=== PATIENT | male | born 1990 | race Caucasian/White ===

== ENCOUNTER 2020-04-10 09:55 | Emergency (ER) | payer BC ==
--- NOTE | 2020-04-10 10:53 | RAD REPORT ---
EXAM DESCRIPTION: CT - Stone Protocol - 04/10/2020 10:38 am CLINICAL HISTORY: ABD PAIN, right mid abdomen COMPARISON: No comparisons TECHNIQUE: Axial 5 mm thick images were obtained without oral or IV contrast. The [id number] span s the entirety of the system including uppermost abdomen and lung bases. All CT scans are performed using dose optimization technique as appropriate and may include automated exposure control or mA/KV adjustment according to patient size. FINDINGS: No hydronephrosis is present and no obstructing ureteral calculi. No suspicious renal mass es. Isodense masses and pyelonephritis are not excluded on a stone protocol CT scan. No significant a drenal finding. No urinary bladder suspicious finding. Liver shows a mild diffuse fatty infiltration pattern. No focal lesions seen on noncontrast imaging. No pancreatitis findings or pancreatic mass evident on a noncontrast study. No splenic abnormality se en. Gallbladder is only partially filled. No biliary tree dilatation. Stones can be occult on CT imag ing. No suspicious bowel findings. No appendicitis findings. No active bowel process seen. No hernia, mass or bulky lymphadenopathy noted. No free air, free fluid or inflammatory stranding. No significant bony abnormality. IMPRESSION: Negative CT stone protocol study for acute finding. Isodense masses and pyelonephritis are not excluded on stone protocol technique.Overall exam sensitiv ity is decreased in the absence of contrast. Mild diffuse fatty infiltration of the liver.
[2020-04-10 12:08] LABS: Urine Blood NEGATIVE (NEG); Urine Glucose NEGATIVE (NEG); Urine Protein NEGATIVE (NEG)
--- NOTE | 2020-04-10 12:35 | RAD REPORT ---
EXAM DESCRIPTION: US - Abdomen Exam Limited - 04/10/2020 12:05 pm CLINICAL HISTORY: ABD PAIN COMPARISON: Stone Protocol dated 04/10/2020 FINDINGS: No gallstones, sludge or other abnormalities within the gallbladder lumen. There is no wal l thickening or pericholecystic fluid. No common duct stone or biliary tree dilatation identified. Patient detailed pain rated 5/10 over the right upper quadrant. Sonographic Goodwin sign maneuvers did not generate a change in pain pattern. IMPRESSION: Normal gallbladder and biliary tree ultrasound.
--- OUTSIDE RECORDS SUMMARY | 2020-04-10 12:46 | XMS REPORT | Clinical Summary ---
:1990 Author Organization [facility] Address [address] [place] [address] Care Team Providers Name Role Phone Monica Primary Care Provider Allergies Active Allergy Reactions Severity Noted Date Comments Penicillins Other (See Comments) 08/05/2017 Mauk di zzy and "out of it" Medications Medication Sig Dispensed Refills Start Date End Date Status gabapentin Take 1 capsule 90 capsule 0 08/11/2017 Ac tive (NEURONTIN) 100 MG (100 mg total) by capsule mouth 3 (three) times daily. Active Problems Problem Noted Date Spontaneous pneumothorax 08/05/2017 Social History Tobacco Use Types Packs/Day Years Used Date Current Every Day Smoker 1 Smokeless Tobacco: Current User Snuff Alcohol Use Drinks/Week oz/Week Comments Yes 14 Cans of beer 8.4 Sex Assigned at Date Recorded Not on file Job Start Date Occupation Industry Not on file Not on file Not on file Travel History Travel Start Travel End No recent travel history available. Last Filed Vital Signs Not on file Plan of Treatment Not on file Results Not on fileafter 04/10/2019 Insurance Payer Benefit Plan / Subscriber ID Type Phone Address Group [employer] xxxxxxxxxxxx PPO [phone] [id number] SHIELD [place]/PP[place] [address] Advance Directives For more information, please contact:[id number] [place], [place] [phone] Code Status Date Activated Date Inactivated Comments Full Code 08/05/2017 5:42 PM 08/11/2017 5:02 PM This code status was determined by: Patient
--- OUTSIDE RECORDS SUMMARY | 2020-04-10 12:47 | XMS REPORT | Continuity of Care Document ---
:1990 Author Organization [facility] t Address [address] [place] [address] Care Team Providers Name Role Phone Sharpless Primary Care Physician BRAN BARRAZA Attending Clinician Unavailable BRAN BARRAZA Admitting Clinician Unavailable Problems Condition Condition Condition Status Onset Resolution Last Treating Co mments Source Name Details Category Date Date Treatment Clinician Date Spontaneou Spontaneou Disease Active 2016-[address] [facility] s -15 [facility] - pneumothor pneumothor 00:00: Me dical ax ax 00 Center Allergies, Adverse Reactions, Alerts Allergy Allergy Status Severity Reaction(s) Onset Inactive Treating Comm ents Source Name Type Date Date Clinician Penicill Propensi Active Other (See 2016-[address] [place] [facility] [address] ins ty to Comments) 15 dizzy and Luke [facility] - adverse 00:00: "out of Medical reaction 00 it" Center s Social History Social Habit Start Date Stop Date Quantity Comments Source History of tobacco Snuff User [facility] - use [facility] Sex Assigned At [facility] Cigarettes smoked 2017-08-10 2017-08-10 [facility] - current (pack per 00:00:00 00:00:00 Medical Center day) - Reported Smoking Status Start Date Stop Date Source Current every day smoker 2017-08-10 00:00:00 [facility] Medications Ordered Filled Start Stop Current Ordering Indication Dosage Frequency Signature Comments Components Source Medication Medication Date Date Medication? Clinician (SIG) Name Name gabapentin 2016-09 Yes 100mg [id number] Take [address] [facility] (NEURONTIN) 10-11 [id number] capsule [facility] - 100 MG 00:00: 3D (100 mg Medical capsule 00 total) by Center mouth 3 (three) times daily. Procedures This patient has no known procedures. Results Test Description Test Time Test Comments Results Result [facility] e Comments CT, CHEST, 2017-10-22 FINAL REPORT PATIENT WITHOUT CONTRAST 6 ID: [id number] CT, 22:51:00 CHEST, WITHOUT CONTRAST INDICATION: spontaneous pneumothorax, chest tube in place COMPARISON: Correlation to plain films series of the same date. TECHNIQUE: Noncontrast axially oriented images were obtained from the thoracic inlet through the lung bases. Coronal and sagittal reformats were provided. DOSE REDUCTION: Dose modulation, iterative reconstruction, and/or weight-based adjustment of the mA/kV was utilized to reduce the radiation dose to as low as reasonably achievable. FINDINGS: Lungs and Pleura: Moderate right pneumothorax. A small caliber thoracic drainage catheter terminates anteriorly near the midline. Atelectatic changes are present at the right base. The left lung is clear. No pleural effusion noted.Central airways: Patent.Mediastinum: No adenopathy or worrisome shift.Heart and pericardium: Normal.Great vessels: Normal calibers. Included upper abdomen: No acute abnormalities.Regional skeletal structures: Intact. Additional findings: None. IMPRESSION: Moderate right pneumothorax with small caliber thoracic drainage catheter terminating anteriorly. Signed: JR Mohan Robert MDReport Verified Date/Time: 11/06/2017 22:51:06 Reading Location: [address] Reading Room UE EXAM 2017-07-23 Surgical Pathology 9 Report 12:06:00 Case: [id number] Authorizing Provider: Pascual Barraza MD Collected: 08/08/2017 1026 Ordering Location: [address] Received: 08/10/2017 0807 Service Pathologist: Paulette Leal MD Specimen: Lung, Right Upper Lobe, Right Upper Lobe Wedge This addendum is issued to report the results of immunohistochemical studies done to characterize a proliferation on mesothelial surface on section A1: - The proliferation is positive for mesothelial marker calretinin and histiocytic marker CD68. No malignancy is seenCPT CODE: [id number]; [id number] electronically signed by Paulette Leal MD on 08/19/2017 at 12:06 PMLUNG, RIGHT UPPER LOBE, WEDGE RESECTION: - WEIGHT: 11GM - PLEURAL AND SUBPLEURAL BLEBS, FIBROSIS AND REACTIVE VASCULAR PROLIFERATION - EMPHYSEMATOUS CHANGES IN SUBPLEURAL LUNG PARENCHYMA - NO GRANULOMAS, DYSPLASIA OR MALIGNANCY Signing Pathologist Direct Phone Line: [phone] lly signed by Paulette Leal MD on 08/18/2017 at 1:40 PMSections show pleural and subpleural blebs, scar and granulation tissue. There is focal mesothelial and histiocytic proliferation. Focal subpleural emphysematous changes are seen. Focally, lung parenchyma appears collapsed. No granulomas, dysplasia or malignancy seen.[id number] pneumothoraxRight upper lobe wedge resectionThe specimen is received in a formalin-filled container and labeled with the patient's information and labeled "right upper lobe wedge resection and consists of an inflated wedge resection of lung weighing 11 gm measuring 5 x 3 x 1 cm. The staple line is inked blue. The pleura is blue-purple with a bleb centrally, measuring 2.5 x 1.5 x 1 cm. The remainder of the lung parenchyma is red-brown, spongy with no other abnormalities present. Bleb is located 0.6 cm from the staple line. Supply Crib Attendant sections are submitted A1 to A3. CG/pl RAD, CHEST, 1 2017-07-23 Reason for FINAL REPORT PATIENT VIEW, NON DEPT 1 exam:->s/p ct ID: [id number] Chest 12:32:00 removalShould this one view AP 08/11/2017 be performed at 12:31 PM CLINICAL the bedside?->Yes INDICATION: s/p ct removal COMPARISON: 08/11/2017 at 0751 IMPRESSION: A small volume right pneumothorax is unchanged as post thoracostomy tube removal. There is a trace right pleural effusion. The left lung is well aerated. Cardiomediastinal contours are stable. The central pulmonary vasculature is not engorged. Signed: Liban Yañez Verified Date/Time: 08/11/2017 12:32:17 Reading Location: [facility] [id number] Consult Reading Room , CHEST, 1 2017-07-23 Reason for FINAL REPORT PATIENT VIEW, NON DEPT 1 exam:->sp VATS ID: [id number] Chest 08:00:00 with chest one view AP 08/11/2017 tubesShould this 8:00 AM CLINICAL be performed at INDICATION: sp VATS the bedside?->Yes with chest tubes COMPARISON: 08/10/2017 IMPRESSION: There is an unchanged small volume right apical pneumothorax, with unchanged positioning of a right thoracostomy tube. The lungs are otherwise well aerated. Cardiomediastinal contours are stable. The central pulmonary vasculature is not engorged. Signed: Liban Yañez MDReport Verified Date/Time: 08/11/2017 08:00:34 Reading Location: [facility] Radiology Reading Room ESIUM 2017-08-11 05:34:00 Test Item Value Reference Range Interpretation Comme nts MAGNESIUM (BEAKER) (test code = 627) 1.7 mg/dL 1.6-2.6 BASIC METABOLIC [id number] 05:34:00 Test Item Value Reference Range Interpretation Comments SODIUM (BEAKER) 138 meq/L 136-145 (test code = 381) POTASSIUM (BEAKER) 4.2 meq/L 3.5-5.1 (test code = 379) CHLORIDE (BEAKER) 104 meq/L 98-107 (test code = 382) CO2 (BEAKER) (test 27 meq/L 22-29 code = 355) BLOOD UREA NITROGEN 12 mg/dL 7-21 (BEAKER) (test code = 354) CREATININE (BEAKER) 0.85 mg/dL 0.57-1.25 (test code = 358) GLUCOSE RANDOM 103 mg/dL 70-105 (BEAKER) (test code = 652) CALCIUM (BEAKER) 9.1 mg/dL 8.4-10.2 (test code = 697) EGFR (BEAKER) (test 107 mL/min/1.73 ESTIM ATED GFR IS code = 1092) sq m NOT ACCURATE CREATININE CLEARANCE IN PREDICTING GLOMERULAR FILTRATION RATE . ESTIMATED GFR I S NOT APPLICABLE FOR DIALYSIS PATIEN TS. CBC W/PLT COUNT & AUTO [id number] 05:01:00 Test Item Value Reference Range Interpretation Comments WHITE BLOOD CELL COUNT (BEAKER) 5.7 K/ L 3.5-10.5 (test code = 775) RED BLOOD CELL COUNT (BEAKER) 3.90 M/ L 4.63-6.08 L (test code = 761) HEMOGLOBIN (BEAKER) (test code = 11.8 GM/DL 13.7-17.5 L 410) HEMATOCRIT (BEAKER) (test code = 36.8 % 40.1-51.0 L 411) MEAN CORPUSCULAR VOLUME (BEAKER) 94.4 fL 79.0-92.2 H (test code = 753) MEAN CORPUSCULAR HEMOGLOBIN 30.3 pg 25.7-32.2 (BEAKER) (test code = 751) MEAN CORPUSCULAR HEMOGLOBIN CONC 32.1 GM/DL 32.3-36.5 L (BEAKER) (test code = 752) RED CELL DISTRIBUTION WIDTH 12.5 % 11.6-14.4 (BEAKER) (test code = 412) PLATELET COUNT (BEAKER) (test 209 K/CU MM 150-450 code = 756) MEAN PLATELET VOLUME (BEAKER) 10.6 fL 9.4-12.4 (test code = 754) NUCLEATED RED BLOOD CELLS 0 /100 WBC 0-0 (BEAKER) (test code = 413) NEUTROPHILS RELATIVE PERCENT 63 % (BEAKER) (test code = 429) LYMPHOCYTES RELATIVE PERCENT 20 % (BEAKER) (test code = 430) MONOCYTES RELATIVE PERCENT 12 % (BEAKER) (test code = 431) EOSINOPHILS RELATIVE PERCENT 4 % (BEAKER) (test code = 432) BASOPHILS RELATIVE PERCENT 1 % (BEAKER) (test code = 437) NEUTROPHILS ABSOLUTE COUNT 3.62 K/ L 1.78-5.38 (BEAKER) (test code = 670) LYMPHOCYTES ABSOLUTE COUNT 1.15 K/ L 1.32-3.57 L (BEAKER) (test code = 414) MONOCYTES ABSOLUTE COUNT (BEAKER) 0.68 K/ L 0.30-0.82 (test code = 415) EOSINOPHILS ABSOLUTE COUNT 0.24 K/ L 0.04-0.54 (BEAKER) (test code = 416) BASOPHILS ABSOLUTE COUNT (BEAKER) 0.03 K/ L 0.01-0.08 (test code = 417) IMMATURE GRANULOCYTES-RELATIVE 0 % 0-1 PERCENT (BEAKER) (test code = 2801) RAD, CHEST, 1 VIEW, NON [id number] 17:24:00Reason for exam:->s/p CT removalShould this be performed at the bedside?->YesFINAL REPORT Comparison: 08/10/2017 at 2:33 PM TECHNIQUE: Single view of the chest. FINDINGS: One of the right-sided chest tubes has been removed. There is a tiny right apical pneumothorax. No other significant change. Signed: Neslon Wetzel Verified Date/Time: 08/10/201717:24:27 Reading Location: [facility] Radiology Reading Room RAD, CHEST, 1 VIEW, NON [id number] 14:37:00Reason for exam:->CT to water sealShould this be performed at the bedside?->YesFINAL REPORT Chest one view AP 08/10/2017 2:37 PM CLINICAL INDICATION: CT to water seal COMPARISON: 08/10/2017 IMPRESSION: There is a small volume right pneumothorax, new when compared to the prior examination. There is atelectasis in the right lung base. The left lung is clear.Cardiomediastinal contours are within normal limits. The central pulmonary vasculature is not engorged. Signed: Liban Yañez Verified Date/Time: 08/10/2017 14:37:50 Reading Location: [address] Consult Reading Room RAD, CHEST, 1 VIEW, NON [id number] 08:41:00Reason for exam:->sp VATS with chest tubesShould this be performed at the bedside?->YesFINAL REPORT Chest two views AP 08/10/2017 8:41 AM CLINICAL INDICATION: sp VATS with chest tubes COMPARISON: 08/09/2017 IMPRESSION: Support hardware is unchanged in position. Thelungs are well aerated. Cardiomediastinal contours are within normal limits. The central pulmonary vasculature is not engorged. Signed: Liban Yañez Verified Date/Time: 08/10/2017 08:41:41Reading Location: [facility] Radiology Reading Room [id number] 06:26:00 Test Item Value Reference Range Interpretation Comments MAGNESIUM (BEAKER) (test code = 1.8 mg/dL 1.6-2.6 627) BASIC METABOLIC [id number] 06:26:00 Test Item Value Reference Range Interpretation Comments SODIUM (BEAKER) 139 meq/L 136-145 (test code = 381) POTASSIUM (BEAKER) 4.3 meq/L 3.5-5.1 (test code = 379) CHLORIDE (BEAKER) 104 meq/L 98-107 (test code = 382) CO2 (BEAKER) (test 28 meq/L 22-29 code = 355) BLOOD UREA NITROGEN 9 mg/dL 7-21 (BEAKER) (test code = 354) CREATININE (BEAKER) 0.84 mg/dL 0.57-1.25 (test code = 358) GLUCOSE RANDOM 96 mg/dL 70-105 (BEAKER) (test code = 652) CALCIUM (BEAKER) 9.2 mg/dL 8.4-10.2 (test code = 697) EGFR (BEAKER) (test 108 mL/min/1.73 ESTIM ATED GFR IS code = 1092) sq m NOT ACCURATE CREATININE CLEARANCE IN PREDICTING GLOMERULAR FILTRATION RATE . ESTIMATED GFR I S NOT APPLICABLE FOR DIALYSIS PATIEN TS. CBC W/PLT COUNT & AUTO [id number] 05:56:00 Test Item Value Reference Range Interpretation Comments WHITE BLOOD CELL COUNT (BEAKER) 5.9 K/ L 3.5-10.5 (test code = 775) RED BLOOD CELL COUNT (BEAKER) 3.97 M/ L 4.63-6.08 L (test code = 761) HEMOGLOBIN (BEAKER) (test code = 12.2 GM/DL 13.7-17.5 L 410) HEMATOCRIT (BEAKER) (test code = 37.7 % 40.1-51.0 L 411) MEAN CORPUSCULAR VOLUME (BEAKER) 95.0 fL 79.0-92.2 H (test code = 753) MEAN CORPUSCULAR HEMOGLOBIN 30.7 pg 25.7-32.2 (BEAKER) (test code = 751) MEAN CORPUSCULAR HEMOGLOBIN CONC 32.4 GM/DL 32.3-36.5 (BEAKER) (test code = 752) RED CELL DISTRIBUTION WIDTH 12.5 % 11.6-14.4 (BEAKER) (test code = 412) PLATELET COUNT (BEAKER) (test 211 K/CU MM 150-450 code = 756) MEAN PLATELET VOLUME (BEAKER) 10.7 fL 9.4-12.4 (test code = 754) NUCLEATED RED BLOOD CELLS 0 /100 WBC 0-0 (BEAKER) (test code = 413) NEUTROPHILS RELATIVE PERCENT 62 % (BEAKER) (test code = 429) LYMPHOCYTES RELATIVE PERCENT 22 % (BEAKER) (test code = 430) MONOCYTES RELATIVE PERCENT 12 % (BEAKER) (test code = 431) EOSINOPHILS RELATIVE PERCENT 4 % (BEAKER) (test code = 432) BASOPHILS RELATIVE PERCENT 1 % (BEAKER) (test code = 437) NEUTROPHILS ABSOLUTE COUNT 3.65 K/ L 1.78-5.38 (BEAKER) (test code = 670) LYMPHOCYTES ABSOLUTE COUNT 1.27 K/ L 1.32-3.57 L (BEAKER) (test code = 414) MONOCYTES ABSOLUTE COUNT (BEAKER) 0.68 K/ L 0.30-0.82 (test code = 415) EOSINOPHILS ABSOLUTE COUNT 0.26 K/ L 0.04-0.54 (BEAKER) (test code = 416) BASOPHILS ABSOLUTE COUNT (BEAKER) 0.05 K/ L 0.01-0.08 (test code = 417) IMMATURE GRANULOCYTES-RELATIVE 0 % 0-1 PERCENT (BEAKER) (test code = 2801) RAD, CHEST, 1 VIEW, NON [id number] 08:32:00Reason for exam:->chest tubes inShould this be performed at the bedside?->YesFINAL REPORT Chest, 1 view Clinical history: chest tubes in Comparison: 08/08/2017 Discussion: Two right-sided chest tubes in position without pneumothorax visualized. The left lung is clear. The cardiac silhouette appears stable. The osseous structures are intact. Signed: Brice Mccartney MDReport Verified Date/Time: 08/09/2017 08:32:00 Reading Location: [facility] [id number] Ortho ConsultReading Room MAGNESIUM 2017-08-09 06:05:00 Test Item Value Reference Range Interpretation Comments MAGNESIUM (BEAKER) (test code = 1.6 mg/dL 1.6-2.6 627) BASIC METABOLIC [id number] 06:05:00 Test Item Value Reference Range Interpretation Comments SODIUM (BEAKER) 136 meq/L 136-145 (test code = 381) POTASSIUM (BEAKER) 3.9 meq/L 3.5-5.1 (test code = 379) CHLORIDE (BEAKER) 104 meq/L 98-107 (test code = 382) CO2 (BEAKER) (test 24 meq/L 22-29 code = 355) BLOOD UREA NITROGEN 11 mg/dL 7-21 (BEAKER) (test code = 354) CREATININE (BEAKER) 0.84 mg/dL 0.57-1.25 (test code = 358) GLUCOSE RANDOM 90 mg/dL 70-105 (BEAKER) (test code = 652) CALCIUM (BEAKER) 8.7 mg/dL 8.4-10.2 (test code = 697) EGFR (BEAKER) (test 108 mL/min/1.73 ESTIM ATED GFR IS code = 1092) sq m NOT ACCURATE CREATININE CLEARANCE IN PREDICTING GLOMERULAR FILTRATION RATE . ESTIMATED GFR I S NOT APPLICABLE FOR DIALYSIS PATIEN TS. [id number] 05:26:00 Test Item Value Reference Range Interpretation Comments PROTIME (BEAKER) (test code = 14.7 seconds 11.7-14.7 759) INR (BEAKER) (test code = 370) 1.2 <=5.9 PARTIAL THROMBOPLASTIN TIME 35.3 seconds 22.5-36.0 (BEAKER) (test code = 760) RECOMMENDED COUMADIN/WARFARIN INR THERAPY RANGESSTANDARD DOSE: 2.0 - 3.0 Includes: PROPHYLAXIS forvenous thrombosis, systemic embolization; TREATMENT for venous thrombosis and/or pulmonary embolus.HIGH RISK: Target INR is 2.5-3.5 for patients with mechanical heart valves.CBC W/PLT COUNT & AUTO DIFFERENTIAL 2017-08-09 05:10:00 Test Item Value Reference Range Interpretation Comments WHITE BLOOD CELL COUNT (BEAKER) 9.2 K/ L 3.5-10.5 (test code = 775) RED BLOOD CELL COUNT (BEAKER) 3.98 M/ L 4.63-6.08 L (test code = 761) HEMOGLOBIN (BEAKER) (test code = 12.3 GM/DL 13.7-17.5 L 410) HEMATOCRIT (BEAKER) (test code = 36.9 % 40.1-51.0 L 411) MEAN CORPUSCULAR VOLUME (BEAKER) 92.7 fL 79.0-92.2 H (test code = 753) MEAN CORPUSCULAR HEMOGLOBIN 30.9 pg 25.7-32.2 (BEAKER) (test code = 751) MEAN CORPUSCULAR HEMOGLOBIN CONC 33.3 GM/DL 32.3-36.5 (BEAKER) (test code = 752) RED CELL DISTRIBUTION WIDTH 12.1 % 11.6-14.4 (BEAKER) (test code = 412) PLATELET COUNT (BEAKER) (test 200 K/CU MM 150-450 code = 756) MEAN PLATELET VOLUME (BEAKER) 10.9 fL 9.4-12.4 (test code = 754) NUCLEATED RED BLOOD CELLS 0 /100 WBC 0-0 (BEAKER) (test code = 413) NEUTROPHILS RELATIVE PERCENT 79 % (BEAKER) (test code = 429) LYMPHOCYTES RELATIVE PERCENT 10 % (BEAKER) (test code = 430) MONOCYTES RELATIVE PERCENT 9 % (BEAKER) (test code = 431) EOSINOPHILS RELATIVE PERCENT 2 % (BEAKER) (test code = 432) BASOPHILS RELATIVE PERCENT 0 % (BEAKER) (test code = 437) NEUTROPHILS ABSOLUTE COUNT 7.28 K/ L 1.78-5.38 H (BEAKER) (test code = 670) LYMPHOCYTES ABSOLUTE COUNT 0.91 K/ L 1.32-3.57 L (BEAKER) (test code = 414) MONOCYTES ABSOLUTE COUNT (BEAKER) 0.82 K/ L 0.30-0.82 (test code = 415) EOSINOPHILS ABSOLUTE COUNT 0.15 K/ L 0.04-0.54 (BEAKER) (test code = 416) BASOPHILS ABSOLUTE COUNT (BEAKER) 0.04 K/ L 0.01-0.08 (test code = 417) IMMATURE GRANULOCYTES-RELATIVE 0 % 0-1 PERCENT (BEAKER) (test code = 2801) [id number] 11:39:00 Test Item Value Reference Range Interpretation Comments MAGNESIUM (BEAKER) (test code = 1.7 mg/dL 1.6-2.6 627) BASIC METABOLIC [id number] 11:39:00 Test Item Value Reference Range Interpretation Comments SODIUM (BEAKER) 138 meq/L 136-145 (test code = 381) POTASSIUM (BEAKER) 3.9 meq/L 3.5-5.1 (test code = 379) CHLORIDE (BEAKER) 104 meq/L 98-107 (test code = 382) CO2 (BEAKER) (test 27 meq/L 22-29 code = 355) BLOOD UREA NITROGEN 12 mg/dL 7-21 (BEAKER) (test code = 354) CREATININE (BEAKER) 1.04 mg/dL 0.57-1.25 (test code = 358) GLUCOSE RANDOM 107 mg/dL 70-105 H (BEAKER) (test code = 652) CALCIUM (BEAKER) 8.6 mg/dL 8.4-10.2 (test code = 697) EGFR (BEAKER) (test 84 mL/min/1.73 ESTIMA KENNEY GFR IS code = 1092) sq m NOT ACCURATE CREATININE CLEARANCE IN PREDICTING GLOMERULAR FILTRATION RATE . ESTIMATED GFR I S NOT APPLICABLE FOR DIALYSIS PATIEN TS. RAD, CHEST, 1 VIEW, NON [id number] 11:27:00Reason for exam:->s/p vatsShould this be performed at the bedside?->YesFINAL REPORT Comparison: 08/08/2017 TECHNIQUE: Single view of the chest FINDINGS: Presumably status post recent right-sided thoracic intervention. A previous small bore right-sided chest tube has been removed and 2 larger bore chest tubes have been placed. No gross pneumothorax.Right-sided subcutaneous emphysema noted. Left lung is grossly clear. Signed: Nelson Wetzel MDReport Verified Date/Time: 08/08/2017 11:27:03 Reading Location: [address] Transitional Reading Room (HEMOGRAM ONLY)2017-08-08 11:15:00 Test Item Value Reference Range Interpretation Comments WHITE BLOOD CELL COUNT (BEAKER) 10.2 K/ L 3.5-10.5 (test code = 775) RED BLOOD CELL COUNT (BEAKER) 4.26 M/ L 4.63-6.08 L (test code = 761) HEMOGLOBIN (BEAKER) (test code = 13.2 GM/DL 13.7-17.5 L 410) HEMATOCRIT (BEAKER) (test code = 39.9 % 40.1-51.0 L 411) MEAN CORPUSCULAR VOLUME (BEAKER) 93.7 fL 79.0-92.2 H (test code = 753) MEAN CORPUSCULAR HEMOGLOBIN 31.0 pg 25.7-32.2 (BEAKER) (test code = 751) MEAN CORPUSCULAR HEMOGLOBIN CONC 33.1 GM/DL 32.3-36.5 (BEAKER) (test code = 752) RED CELL DISTRIBUTION WIDTH 12.1 % 11.6-14.4 (BEAKER) (test code = 412) PLATELET COUNT (BEAKER) (test 206 K/CU MM 150-450 code = 756) MEAN PLATELET VOLUME (BEAKER) 10.5 fL 9.4-12.4 (test code = 754) NUCLEATED RED BLOOD CELLS 0 /100 WBC 0-0 (BEAKER) (test code = 413) RAD, CHEST, 1 VIEW, NON [id number] 09:21:00Reason for exam:->spontaneous pneumothoraxShould this be performed at the bedside?->YesFINAL REPORT Comparison: 08/07/2017 TECHNIQUE: Single view of the chest FINDIN GS: Previous right-sided pneumothorax has resolved. There is improved aeration in the right lower lung. Lungs are grossly clear. Small bore right-sided chest tube is stable. Signed: Nelson Wetzel MDReport Verified Date/Time: 08/08/2017 09:21:58 Reading Location: [address] Reading Room MAGNESIUM 2017-08-08 07:36:00 Test Item Value Reference Range Interpretation Comments MAGNESIUM (BEAKER) (test code = 1.7 mg/dL 1.6-2.6 627) BASIC METABOLIC [id number] 07:36:00 Test Item Value Reference Range Interpretation Comments SODIUM (BEAKER) 138 meq/L 136-145 (test code = 381) POTASSIUM (BEAKER) 4.0 meq/L 3.5-5.1 (test code = 379) CHLORIDE (BEAKER) 103 meq/L 98-107 (test code = 382) CO2 (BEAKER) (test 28 meq/L 22-29 code = 355) BLOOD UREA NITROGEN 13 mg/dL 7-21 (BEAKER) (test code = 354) CREATININE (BEAKER) 1.01 mg/dL 0.57-1.25 (test code = 358) GLUCOSE RANDOM 85 mg/dL 70-105 (BEAKER) (test code = 652) CALCIUM (BEAKER) 9.0 mg/dL 8.4-10.2 (test code = 697) EGFR (BEAKER) (test 87 mL/min/1.73 ESTIMA KENNEY GFR IS code = 1092) sq m NOT ACCURATE CREATININE CLEARANCE IN PREDICTING GLOMERULAR FILTRATION RATE . ESTIMATED GFR I S NOT APPLICABLE FOR DIALYSIS PATIEN TS. CBC W/PLT COUNT & AUTO [id number] 07:05:00 Test Item Value Reference Range Interpretation Comments WHITE BLOOD CELL COUNT (BEAKER) 7.3 K/ L 3.5-10.5 (test code = 775) RED BLOOD CELL COUNT (BEAKER) 4.35 M/ L 4.63-6.08 L (test code = 761) HEMOGLOBIN (BEAKER) (test code = 13.3 GM/DL 13.7-17.5 L 410) HEMATOCRIT (BEAKER) (test code = 40.3 % 40.1-51.0 411) MEAN CORPUSCULAR VOLUME (BEAKER) 92.6 fL 79.0-92.2 H (test code = 753) MEAN CORPUSCULAR HEMOGLOBIN 30.6 pg 25.7-32.2 (BEAKER) (test code = 751) MEAN CORPUSCULAR HEMOGLOBIN CONC 33.0 GM/DL 32.3-36.5 (BEAKER) (test code = 752) RED CELL DISTRIBUTION WIDTH 12.0 % 11.6-14.4 (BEAKER) (test code = 412) PLATELET COUNT (BEAKER) (test 215 K/CU MM 150-450 code = 756) MEAN PLATELET VOLUME (BEAKER) 10.5 fL 9.4-12.4 (test code = 754) NUCLEATED RED BLOOD CELLS 0 /100 WBC 0-0 (BEAKER) (test code = 413) NEUTROPHILS RELATIVE PERCENT 71 % (BEAKER) (test code = 429) LYMPHOCYTES RELATIVE PERCENT 17 % (BEAKER) (test code = 430) MONOCYTES RELATIVE PERCENT 8 % (BEAKER) (test code = 431) EOSINOPHILS RELATIVE PERCENT 3 % (BEAKER) (test code = 432) BASOPHILS RELATIVE PERCENT 1 % (BEAKER) (test code = 437) NEUTROPHILS ABSOLUTE COUNT 5.17 K/ L 1.78-5.38 (BEAKER) (test code = 670) LYMPHOCYTES ABSOLUTE COUNT 1.24 K/ L 1.32-3.57 L (BEAKER) (test code = 414) MONOCYTES ABSOLUTE COUNT (BEAKER) 0.58 K/ L 0.30-0.82 (test code = 415) EOSINOPHILS ABSOLUTE COUNT 0.21 K/ L 0.04-0.54 (BEAKER) (test code = 416) BASOPHILS ABSOLUTE COUNT (BEAKER) 0.05 K/ L 0.01-0.08 (test code = 417) IMMATURE GRANULOCYTES-RELATIVE 0 % 0-1 PERCENT (BEAKER) (test code = 2801) [id number] 06:59:00 Test Item Value Reference Range Interpretation Comments PROTIME (BEAKER) (test code = 13.1 seconds 11.7-14.7 759) INR (BEAKER) (test code = 370) 1.0 <=5.9 PARTIAL THROMBOPLASTIN TIME 30.9 seconds 22.5-36.0 (BEAKER) (test code = 760) RECOMMENDED COUMADIN/WARFARIN INR THERAPY RANGESSTANDARD DOSE: 2.0 - 3.0 Includes: PROPHYLAXIS forvenous thrombosis, systemic embolization; TREATMENT for venous thrombosis and/or pulmonary embolus.HIGH RISK: Target INR is 2.5-3.5 for patients with mechanical heart valves.RAD, CHEST, 1 VIEW, NON [id number] 08:02:00Reason for exam:->spontaneous pneumothoraxShould this be performed at the bedside?->YesFINAL REPORT Chest one view. Clinical history: spontaneous pneumothorax Comparison: 08/06/2017 Discussion: A frontal chest is provided. Cardiomediastinal contours are unchanged. Right chest tube is in stable position. Small right apical pneumothorax has decreased in size. Mild right basilar atelectasis. Left lung is clear. No significant effusion. Signed: Tamanna Washington Verified Date/Time: 08/07/2017 08:02:55 Reading Location: [facility] Radiology Reading Room [id number] 06:38:00 Test Item Value Reference Range Interpretation Comments MAGNESIUM (BEAKER) (test code = 2.0 mg/dL 1.6-2.6 627) BASIC METABOLIC [id number] 06:38:00 Test Item Value Reference Range Interpretation Comments SODIUM (BEAKER) 138 meq/L 136-145 (test code = 381) POTASSIUM (BEAKER) 4.2 meq/L 3.5-5.1 (test code = 379) CHLORIDE (BEAKER) 105 meq/L 98-107 (test code = 382) CO2 (BEAKER) (test 25 meq/L 22-29 code = 355) BLOOD UREA NITROGEN 13 mg/dL 7-21 (BEAKER) (test code = 354) CREATININE (BEAKER) 1.00 mg/dL 0.57-1.25 (test code = 358) GLUCOSE RANDOM 77 mg/dL 70-105 (BEAKER) (test code = 652) CALCIUM (BEAKER) 9.0 mg/dL 8.4-10.2 (test code = 697) EGFR (BEAKER) (test 88 mL/min/1.73 ESTIMA KENNEY GFR IS code = 1092) sq m NOT ACCURATE CREATININE CLEARANCE IN PREDICTING GLOMERULAR FILTRATION RATE . ESTIMATED GFR I S NOT APPLICABLE FOR DIALYSIS PATIEN TS. CBC W/PLT COUNT & AUTO [id number] 06:21:00 Test Item Value Reference Range Interpretation Comments WHITE BLOOD CELL COUNT (BEAKER) 6.3 K/ L 3.5-10.5 (test code = 775) RED BLOOD CELL COUNT (BEAKER) 4.47 M/ L 4.63-6.08 L (test code = 761) HEMOGLOBIN (BEAKER) (test code = 13.7 GM/DL 13.7-17.5 410) HEMATOCRIT (BEAKER) (test code = 41.8 % 40.1-51.0 411) MEAN CORPUSCULAR VOLUME (BEAKER) 93.5 fL 79.0-92.2 H (test code = 753) MEAN CORPUSCULAR HEMOGLOBIN 30.6 pg 25.7-32.2 (BEAKER) (test code = 751) MEAN CORPUSCULAR HEMOGLOBIN CONC 32.8 GM/DL 32.3-36.5 (BEAKER) (test code = 752) RED CELL DISTRIBUTION WIDTH 12.1 % 11.6-14.4 (BEAKER) (test code = 412) PLATELET COUNT (BEAKER) (test 220 K/CU MM 150-450 code = 756) MEAN PLATELET VOLUME (BEAKER) 10.6 fL 9.4-12.4 (test code = 754) NUCLEATED RED BLOOD CELLS 0 /100 WBC 0-0 (BEAKER) (test code = 413) NEUTROPHILS RELATIVE PERCENT 54 % (BEAKER) (test code = 429) LYMPHOCYTES RELATIVE PERCENT 32 % (BEAKER) (test code = 430) MONOCYTES RELATIVE PERCENT 10 % (BEAKER) (test code = 431) EOSINOPHILS RELATIVE PERCENT 3 % (BEAKER) (test code = 432) BASOPHILS RELATIVE PERCENT 1 % (BEAKER) (test code = 437) NEUTROPHILS ABSOLUTE COUNT 3.44 K/ L 1.78-5.38 (BEAKER) (test code = 670) LYMPHOCYTES ABSOLUTE COUNT 2.00 K/ L 1.32-3.57 (BEAKER) (test code = 414) MONOCYTES ABSOLUTE COUNT (BEAKER) 0.61 K/ L 0.30-0.82 (test code = 415) EOSINOPHILS ABSOLUTE COUNT 0.18 K/ L 0.04-0.54 (BEAKER) (test code = 416) BASOPHILS ABSOLUTE COUNT (BEAKER) 0.06 K/ L 0.01-0.08 (test code = 417) IMMATURE GRANULOCYTES-RELATIVE 0 % 0-1 PERCENT (BEAKER) (test code = 2801) [id number] 06:14:00 Test Item Value Reference Range Interpretation Comments PROTIME (BEAKER) (test code = 13.3 seconds 11.7-14.7 759) INR (BEAKER) (test code = 370) 1.0 <=5.9 PARTIAL THROMBOPLASTIN TIME 32.1 seconds 22.5-36.0 (POLLO) (test code = 760) RECOMMENDED COUMADIN/WARFARIN INR THERAPY RANGESSTANDARD DOSE: 2.0 - 3.0 Includes: PROPHYLAXIS forvenous thrombosis, systemic embolization; TREATMENT for venous thrombosis and/or pulmonary embolus.HIGH RISK: Target INR is 2.5-3.5 for patients with mechanical heart valves.RAD, CHEST, 1 VIEW, NON [id number] 18:00:00Reason for exam:->shortness of breathShould this be performed at the bedside?->YesFINAL REPORT Chest, 1 view Clinical history: shortness of breath Comparison: Same date Discussion: The previously seen right-sided pneumothorax appears smaller with a small right apical component. There is a small right pleural effusion with bibasilar atelectasis. There is mildright lateral subcutaneous emphysema. A right-sided chest tube appear unchanged. The left lung is clear. The cardiac silhouette appears within normal limits. The osseous structures are intact. Signed: Brice Mccartney MDReport Verified Date/Time: 08/06/2017 18:00:42 Reading Location: [address] Consult Reading Room RAD, CHEST, 1 VIEW, NON [id number] 14:41:00Reason for exam:->CT to water sealShould this be performed at the bedside?->YesFINAL REPORT TECHNIQUE: Frontal chest radiograph dated 08/06/2017. CLINICAL HISTORY: CT to water seal COMPARISON STUDY: Chest radiograph dated 08/06/2017 IMPRESSION: There is asmall right pneumothorax. Right sided chest tube is in place. Small amount of subcutaneous emphysema. Atelectasis is seen in the right lung base. No pleural effusion. Cardiomediastinal silhouette is normal in size. No pulmonary edema. Degenerative changes are seen in the spine. No fracture. Signed: Edu Carson MDReport Verified Date/Time: 08/06/2017 14:41:22 Reading Location: [facility] Radiology Reading Room RAD, CHEST, 1 VIEW, NON DEPT 2017-08-06 07:43:00Reason for exam:->spontaneous pneumothoraxShould this be performed at the bedside?->YesFINAL REPORT Chest one view AP 08/06/2017 7:43 AM CLINICAL INDICATION: spontaneous pneumothorax COMPARISON: 08/05/2017 IMPRESSION: There is a small volume right circumferential pneumothorax. There is atelectasis in the right lung base. The left lung is clear. Cardiomediastinal contours are within normal limits. The central pulmonary vasculature is not engorged. A right thoracostomy tube is unchanged in position. Signed: Liban Yañez MDReport Verified Date/Time: 08/06/2017 0 7:43:48 Reading Location: [facility] C013V Neuro Reading Room [id number] 06:18:00 Test Item Value Reference Range Interpretation Comments MAGNESIUM (BEAKER) 2.1 mg/dL 1.6-2.6 Specimen slightly (test code = 627) hemolyzed BASIC METABOLIC [id number] 06:18:00 Test Item Value Reference Range Interpretation Comments SODIUM (BEAKER) 138 meq/L 136-145 (test code = 381) POTASSIUM (BEAKER) 4.7 meq/L 3.5-5.1 Specimen slightly (test code = 379) hemolyzed CHLORIDE (BEAKER) 109 meq/L 98-107 H (test code = 382) CO2 (BEAKER) (test 21 meq/L 22-29 L code = 355) BLOOD UREA NITROGEN 12 mg/dL 7-21 (BEAKER) (test code = 354) CREATININE (BEAKER) 0.85 mg/dL 0.57-1.25 Specimen slightly (test code = 358) hemolyzed GLUCOSE RANDOM 83 mg/dL 70-105 (BEAKER) (test code = 652) CALCIUM (BEAKER) 8.9 mg/dL 8.4-10.2 (test code = 697) EGFR (BEAKER) (test 107 mL/min/1.73 ESTIM ATED GFR IS code = 1092) sq m NOT ACCURATE CREATININE CLEARANCE IN PREDICTING GLOMERULAR FILTRATION RATE . ESTIMATED GFR I S NOT APPLICABLE FOR DIALYSIS PATIEN TS. CBC W/PLT COUNT & AUTO [id number] 06:08:00 Test Item Value Reference Range Interpretation Comments WHITE BLOOD CELL COUNT (BEAKER) 5.7 K/ L 3.5-10.5 (test code = 775) RED BLOOD CELL COUNT (BEAKER) 4.55 M/ L 4.63-6.08 L (test code = 761) HEMOGLOBIN (BEAKER) (test code = 14.0 GM/DL 13.7-17.5 410) HEMATOCRIT (BEAKER) (test code = 44.5 % 40.1-51.0 411) MEAN CORPUSCULAR VOLUME (BEAKER) 97.8 fL 79.0-92.2 H (test code = 753) MEAN CORPUSCULAR HEMOGLOBIN 30.8 pg 25.7-32.2 (BEAKER) (test code = 751) MEAN CORPUSCULAR HEMOGLOBIN CONC 31.5 GM/DL 32.3-36.5 L (BEAKER) (test code = 752) RED CELL DISTRIBUTION WIDTH 12.7 % 11.6-14.4 (BEAKER) (test code = 412) PLATELET COUNT (BEAKER) (test 183 K/CU MM 150-450 code = 756) MEAN PLATELET VOLUME (BEAKER) 10.5 fL 9.4-12.4 (test code = 754) NUCLEATED RED BLOOD CELLS 0 /100 WBC 0-0 (BEAKER) (test code = 413) NEUTROPHILS RELATIVE PERCENT 49 % (BEAKER) (test code = 429) LYMPHOCYTES RELATIVE PERCENT 37 % (BEAKER) (test code = 430) MONOCYTES RELATIVE PERCENT 9 % (BEAKER) (test code = 431) EOSINOPHILS RELATIVE PERCENT 3 % (BEAKER) (test code = 432) BASOPHILS RELATIVE PERCENT 1 % (BEAKER) (test code = 437) NEUTROPHILS ABSOLUTE COUNT 2.82 K/ L 1.78-5.38 (BEAKER) (test code = 670) LYMPHOCYTES ABSOLUTE COUNT 2.12 K/ L 1.32-3.57 (BEAKER) (test code = 414) MONOCYTES ABSOLUTE COUNT (BEAKER) 0.52 K/ L 0.30-0.82 (test code = 415) EOSINOPHILS ABSOLUTE COUNT 0.18 K/ L 0.04-0.54 (BEAKER) (test code = 416) BASOPHILS ABSOLUTE COUNT (BEAKER) 0.05 K/ L 0.01-0.08 (test code = 417) IMMATURE GRANULOCYTES-RELATIVE 0 % 0-1 PERCENT (BEAKER) (test code = 2801) [id number] 06:04:00 Test Item Value Reference Range Interpretation Comments PROTIME (BEAKER) (test code = 13.7 seconds 11.7-14.7 759) INR (BEAKER) (test code = 370) 1.1 <=5.9 PARTIAL THROMBOPLASTIN TIME 31.5 seconds 22.5-36.0 (BEAKER) (test code = 760) RECOMMENDED COUMADIN/WARFARIN INR THERAPY RANGESSTANDARD DOSE: 2.0 - 3.0 Includes: PROPHYLAXIS forvenous thrombosis, systemic embolization; TREATMENT for venous thrombosis and/or pulmonary embolus.HIGH RISK: Target INR is 2.5-3.5 for patients with mechanical heart valves.[id number] 19:34:00 Test Item Value Reference Range Interpretation Comments MAGNESIUM (BEAKER) (test code = 2.0 mg/dL 1.6-2.6 627) BASIC METABOLIC [id number] 19:34:00 Test Item Value Reference Range Interpretation Comments SODIUM (BEAKER) 140 meq/L 136-145 (test code = 381) POTASSIUM (BEAKER) 3.8 meq/L 3.5-5.1 (test code = 379) CHLORIDE (BEAKER) 107 meq/L 98-107 (test code = 382) CO2 (BEAKER) (test 26 meq/L 22-29 code = 355) BLOOD UREA NITROGEN 11 mg/dL 7-21 (BEAKER) (test code = 354) CREATININE (BEAKER) 0.88 mg/dL 0.57-1.25 (test code = 358) GLUCOSE RANDOM 105 mg/dL 70-105 (BEAKER) (test code = 652) CALCIUM (BEAKER) 9.0 mg/dL 8.4-10.2 (test code = 697) EGFR (BEAKER) (test 102 mL/min/1.73 ESTIM ATED GFR IS code = 1092) sq m NOT ACCURATE CREATININE CLEARANCE IN PREDICTING GLOMERULAR FILTRATION RATE . ESTIMATED GFR I S NOT APPLICABLE FOR DIALYSIS PATIEN TS. [id number] 19:19:00 Test Item Value Reference Range Interpretation Comments PROTIME (BEAKER) (test code = 13.8 seconds 11.7-14.7 759) INR (BEAKER) (test code = 370) 1.1 <=5.9 PARTIAL THROMBOPLASTIN TIME 28.6 seconds 22.5-36.0 (BEAKER) (test code = 760) RECOMMENDED COUMADIN/WARFARIN INR THERAPY RANGESSTANDARD DOSE: 2.0 - 3.0 Includes: PROPHYLAXIS forvenous thrombosis, systemic embolization; TREATMENT for venous thrombosis and/or pulmonary embolus.HIGH RISK: Target INR is 2.5-3.5 for patients with mechanical heart valves.CBC (HEMOGRAM ONLY)[id number] 19:11:00 Test Item Value Reference Range Interpretation Comments WHITE BLOOD CELL COUNT (BEAKER) 6.9 K/ L 3.5-10.5 (test code = 775) RED BLOOD CELL COUNT (BEAKER) 4.28 M/ L 4.63-6.08 L (test code = 761) HEMOGLOBIN (BEAKER) (test code = 13.4 GM/DL 13.7-17.5 L 410) HEMATOCRIT (BEAKER) (test code = 40.4 % 40.1-51.0 411) MEAN CORPUSCULAR VOLUME (BEAKER) 94.4 fL 79.0-92.2 H (test code = 753) MEAN CORPUSCULAR HEMOGLOBIN 31.3 pg 25.7-32.2 (BEAKER) (test code = 751) MEAN CORPUSCULAR HEMOGLOBIN CONC 33.2 GM/DL 32.3-36.5 (BEAKER) (test code = 752) RED CELL DISTRIBUTION WIDTH 12.8 % 11.6-14.4 (BEAKER) (test code = 412) PLATELET COUNT (BEAKER) (test 221 K/CU MM 150-450 code = 756) MEAN PLATELET VOLUME (BEAKER) 10.2 fL 9.4-12.4 (test code = 754) NUCLEATED RED BLOOD CELLS 0 /100 WBC 0-0 (BEAKER) (test code = 413) RAD, CHEST, 1 VIEW, NON [id number] 17:39:00Reason for exam:->Chest tube placement ? SOBShould this be performed at the bedside?->YesFINAL REPORT AP chest HISTORY: Chest tube placement, shortness of breath COMPARISON: None IMPRESSION:Right thoracostomy tube present. Small apical and basilar pneumothorax component noted. Left lung clear. Heart size normal. Intact skeleton. Signed: Sunita Fregoso MDReport Verified Date/Time: 08/05/2017 17:39:26 Reading Location: [address] Consult Reading Room
[2020-04-10 13:13] LABS: Absolute Lymphocytes (CBC) 1.5 K/uL (0.7-4.9); Basophils % 0.6 % (0-1.3); Hematocrit 44.5 % (39.6-49.0); Lymphocytes % 21.2 % (15.3-44.8); RBC Red Blood Cell Count 4.79 M/uL (4.33-5.43)
[2020-04-10 13:41] LABS: ALT/SGPT 117 U/L (12-78); AST/SGOT 44 U/L (15-37); Albumin 4.2 g/dL (3.4-5.0); Alkaline Phosphatase 57 U/L (45-117); BUN Blood Urea Nitrogen 10 mg/dL (7-18); Bicarbonate 26 mmol/L (21-32); Bilirubin Direct < 0.1 mg/dL (0-0.2); Bilirubin Total 0.4 mg/dL (0.2-1.0); Glucose Level 94 mg/dL (74-106); Lipase 79 U/L (73-393); Potassium 4.3 mmol/L (3.5-5.1); Protein, Total 7.7 g/dL (6.4-8.2); Sodium Level 142 mmol/L (136-145)
--- NOTE | 2020-04-10 14:00 | EDPHYS ---
Physician Documentation [facility] Name: Ernesto Cortez Age: 30 yrs Sex: Male : 1990 Arrival Date: 04/10/2020 Time: 10:02 Bed 19 Private MD: ED Physician Jefry Omer HPI: 04/10 13:59 This 30 yrs old Male presents to ER via Ambulatory with complaints of PAIN ON kb THE RT SIDE. 13:59 The patient presents with abdominal pain in the right upper quadrant. Onset: The kb symptoms/episode began/occurred today. The symptoms do not radiate. Associated signs and symptoms: none. The symptoms are described as constant. Modifying factors: The symptoms are alleviated by nothing, the symptoms are aggravated by nothing. Severity of pain: At its worst the pain was moderate in the emergency department the pain is unchanged. The patient has not experienced similar symptoms in the past. The patient has not recently seen a physician. Historical: - Allergies: 10:15 PENICILLINS; ca1 - Home Meds: 10:15 None [Active]; ca1 - PMHx: 10:15 Collapsed Lung R; ca1 - PSHx: 10:15 Lung Surgery R; Face Surgery; ca1 - Immunization history:: Adult Immunizations up to date. - Social history:: Smoking status: Patient/guardian denies using tobacco, the patient reports quitting approximately 3 years ago. ROS: 13:57 Constitutional: Negative for fever, chills, and weight loss, Cardiovascular: Negative kb for chest pain, palpitations, and edema, Respiratory: Negative for shortness of breath, cough, wheezing, and pleuritic chest pain, Back: Negative for injury and pain, MS/Extremity: Negative for injury and deformity, Skin: Negative for injury, rash, and discoloration, Neuro: Negative for headache, weakness, numbness, tingling, and seizure. 13:57 Abdomen/GI: Positive for abdominal pain, Negative for nausea, vomiting, and diarrhea. Exam: 13:57 Constitutional: This is a well developed, well nourished patient who is awake, alert, kb and in no acute distress. Head/Face: Normocephalic, atraumatic. Chest/axilla: Normal chest wall appearance and motion. Nontender with no deformity. No lesions are appreciated. Cardiovascular: Regular rate and rhythm with a normal S1 and S2. No gallops, murmurs, or rubs. Normal PMI, no JVD. No pulse deficits. Respiratory: Lungs have equal breath sounds bilaterally, clear to auscultation and percussion. No rales, rhonchi or wheezes noted. No increased work of breathing, no retractions or nasal flaring. Back: No spinal tenderness. No costovertebral tenderness. Full range of motion. Skin: Warm, dry with normal turgor. Normal color with no rashes, no lesions, and no evidence of cellulitis. MS/ Extremity: Pulses equal, no cyanosis. Neurovascular intact. Full, normal range of motion. Neuro: Awake and alert, GCS 15, oriented to person, place, time, and situation. Cranial nerves II-XII grossly intact. Motor strength 5/5 in all extremities. Sensory grossly intact. Cerebellar exam normal. Normal gait. 13:57 Abdomen/GI: Inspection: abdomen appears normal, Bowel sounds: normal, in all quadrants, Palpation: soft, in all quadrants, mild abdominal tenderness, in the right upper quadrant. Vital Signs: 10:11 BP 149 / 87; Pulse 84; Resp 18 S; Temp 97.5(TE); Pulse Ox 99% on R/A; Weight 77.11 kg; ca1 Height 6 ft. 2 in. (187.96 cm) (R); Pain 4/10; 14:24 BP 132 / 78; Pulse 72; Resp 18; Temp 97.4; Pulse Ox 99% on R/A; ph 10:11 Body Mass Index 21.83 (77.11 kg, 187.96 cm) ca1 MDM: 11:26 Patient medically screened. kb 13:58 Data reviewed: vital signs, nurses notes. Data interpreted: Pulse oximetry: on room air kb is 99 %. Interpretation: normal. Counseling: I had a detailed discussion with the patient and/or guardian regarding: the historical points, exam findings, and any diagnostic results supporting the discharge/admit diagnosis, lab results, radiology results, the need for outpatient follow up, a family practitioner, to return to the emergency department if symptoms worsen or persist or if there are any questions or concerns that arise at home. 04/10 11:31 Order name: Basic Metabolic Panel; Complete Time: 13:49 kb 04/10 11:31 Order name: CBC with Diff; Complete Time: 13:15 kb 04/10 10:18 Order name: CT Stone Protocol; Complete Time: 10:59 kb 04/10 11:31 Order name: Hepatic Function; Complete Time: 13:49 kb 04/10 11:31 Order name: Lipase; Complete Time: 13:49 kb 04/10 11:39 Order name: Urine Dipstick--Ancillary (enter results); Complete Time: 12:10 bd 04/10 11:31 Order name: IV Saline Lock; Complete Time: 13:12 kb 04/10 11:31 Order name: Labs collected and sent; Complete Time: 13:12 kb 04/10 11:31 Order name: US Abdomen Limited; Complete Time: 12:38 kb Administered Medications: 14:15 Drug: TORadol 30 mg Route: IVP; Site: right antecubital; ph 14:23 Follow up: Response: No adverse reaction; Medication administered at discharge. ph Disposition: 17:50 Co-signature as Attending Physician, Jefry Omer MD. rn Disposition: 04/10/20 13:59 Discharged to Home. Impression: Upper abdominal pain, unspecified. - Condition is Stable. - Discharge Instructions: Abdominal Pain, Adult, Skko-bn-[id number]. - Prescriptions for Diclofenac Sodium 75 mg Oral Tablet, Delayed Release (E.C.) - take 1 tablet by ORAL route 2 times per day As needed; 30 tablet. - Medication Reconciliation Form, Thank You Letter, Antibiotic Education, Prescription Opioid Use form. - Follow up: Emergency Department; When: As needed; Reason: Worsening of condition. Follow up: Private Physician; When: 2 - 3 days; Reason: Recheck today's complaints, Continuance of care, Re-evaluation by your physician. Signatures: Dispatcher [employer] Jenny Mcmahan, PLYCOR OPERATOR-C PLYCOR OPERATOR-Ckb Jefry Omer MD MD rn Elle Rosales RN RN ph Acyvon, CARINA Foreman RN ca1 Corrections: (The following items were deleted from the chart) 14:26 13:59 04/10/2020 13:59 Discharged to Home. Impression: Upper abdominal pain, ph unspecified. Condition is Stable. Forms are Medication Reconciliation Form, Thank You Letter, Antibiotic Education, Prescription Opioid Use. Follow up: Emergency Department; When: As needed; Reason: Worsening of condition. Follow up: Private Physician; When: 2 - 3 days; Reason: Recheck today's complaints, Continuance of care, Re-evaluation by your physician. kb
--- NOTE | 2020-04-10 14:00 | ER ---
Nurse's Notes [facility] Name: Ernesto Cortez Age: 30 yrs Sex: Male : 1990 Arrival Date: 04/10/2020 Time: 10:02 Bed 19 Private MD: Diagnosis: Upper abdominal pain, unspecified Presentation: 04/10 10:11 Chief complaint: Patient states: Sharp pain on R mid abdomen, started 1-1.5 hrs ago. ca1 Denies N/V/D. Denies hx of kidney stones and gall bladder stones. Coronavirus screen: Patient denies a cough. Patient denies shortness of breath or difficulty breathing. Patient denies measured and/or subjective temperature greater than 100.4F prior to today's visit. Patient denies travel on a cruise ship or to a country the [facility] currently lists as an affected area. Patient denies contact with known and/or suspected case of COVID-19. Proceed with normal triage. Ebola Screen: Patient negative for fever greater than or equal to 101.5 degrees Fahrenheit, and additional compatible Ebola Virus Disease symptoms Patient denies exposure to infectious person. Patient denies travel to an Ebola-affected area in the 21 days before illness onset. No symptoms or risks identified at this time. Initial Sepsis Screen: Does the patient meet any 2 criteria? No. Patient's initial sepsis screen is negative. Does the patient have a suspected source of infection? No. Patient's initial sepsis screen is negative. Risk Assessment: Do you want to hurt yourself or someone else? Patient reports no desire to harm self or others. Onset of symptoms was April 10, 2020. 10:11 Method Of Arrival: Ambulatory ca1 10:11 Acuity: CARROL 3 ca1 Historical: - Allergies: 10:15 PENICILLINS; ca1 - Home Meds: 10:15 None [Active]; ca1 - PMHx: 10:15 Collapsed Lung R; ca1 - PSHx: 10:15 Lung Surgery R; Face Surgery; ca1 - Immunization history:: Adult Immunizations up to date. - Social history:: Smoking status: Patient/guardian denies using tobacco, the patient reports quitting approximately 3 years ago. Screenin:24 Abuse screen: Denies threats or abuse. Denies injuries from another. Nutritional ph screening: No deficits noted. Tuberculosis screening: No symptoms or risk factors identified. Fall Risk None identified. Assessment: 11:54 Reassessment: US at bedside. ph 12:30 General: Appears in no apparent distress. comfortable, slender, Behavior is calm, ph cooperative, appropriate for age, Denies fever, feeling ill. Pain: Complains of pain in right upper quadrant. Neuro: Level of Consciousness is awake, alert, obeys commands, Oriented to person, place, time, situation. Cardiovascular: Capillary refill < 3 seconds in bilateral fingers Patient's skin is warm and dry. Respiratory: Airway is patent Respiratory effort is even, unlabored, Respiratory pattern is regular, symmetrical. GI: Reports upper abdominal pain, Patient currently denies diarrhea, nausea, vomiting. Derm: Skin is intact, is healthy with good turgor, Skin is pink, warm \T\ dry. 13:30 Reassessment: Patient appears in no apparent distress at this time. Patient and/or ph family updated on plan of care and expected duration. Pain level reassessed. Patient is alert, oriented x 3, equal unlabored respirations, skin warm/dry/pink. Vital Signs: 10:11 BP 149 / 87; Pulse 84; Resp 18 S; Temp 97.5(TE); Pulse Ox 99% on R/A; Weight 77.11 kg; ca1 Height 6 ft. 2 in. (187.96 cm) (R); Pain 4/10; 14:24 BP 132 / 78; Pulse 72; Resp 18; Temp 97.4; Pulse Ox 99% on R/A; ph 10:11 Body Mass Index 21.83 (77.11 kg, 187.96 cm) ca1 ED Course: 10:02 Patient arrived in ED. fj1 10:13 Triage completed. ca1 10:15 Arm band placed on right wrist. ca1 10:17 Jenny Goff FNP-C is PHCP. kb 10:17 Jefry Omer MD is Attending Physician. kb 10:38 CT Stone Protocol In Process Unspecified. EDMS 11:27 Elle Rosales, CARINA is Primary Nurse. ph 12:05 US Abdomen Limited In Process Unspecified. EDMS 12:30 Patient has correct armband on for positive identification. Bed in low position. Call ph light in reach. Side rails up X 1. Pulse ox on. NIBP on. Door closed. Noise minimized. Warm blanket given. 12:57 Inserted saline lock: 20 gauge in right antecubital area, using aseptic technique. dh4 14:25 No provider procedures requiring assistance completed. IV discontinued, intact, ph bleeding controlled, No redness/swelling at site. Pressure dressing applied. Administered Medications: 14:15 Drug: TORadol 30 mg Route: IVP; Site: right antecubital; ph 14:23 Follow up: Response: No adverse reaction; Medication administered at discharge. ph Outcome: 13:59 Discharge ordered by . trixie 14:25 Discharged to home ambulatory. ph 14:25 Condition: good 14:25 Discharge instructions given to patient, Instructed on discharge instructions, follow up and referral plans. medication usage, Demonstrated understanding of instructions, follow-up care, medications, Prescriptions given X 1. 14:26 Patient left the ED. ph Signatures: Dispatcher [employer] EDJenny Renee, WOOD HEEL CEMENTER-C WOOD HEEL CEMENTER-Elle Servin RN RN Kellen Pereira RN RN ca1 James, Frank Farhat Phan 4
[2020-04-10] MEDS ORDERED: KETOROLAC 30 MG/ML INJ ONE (14:07)
[2020-04-11 04:13] VITALS: O2SAT 99
[2020-04-11 04:14] VITALS: BP 132/78; TEMP 97.4
== END 2020-04-10 14:26 | disposition home or self-care (01) ==
LOC: ER 09:55
DX: R10.11 Right upper quadrant pain (principal); Z88.0 Allergy status to penicillin
CPT/HCPCS: 36415; 74176; 76377; 76705; 80048; 80076; 81003; 83690; 85025; 96374; 99284